=== PATIENT | male | born 1975 | race Two or more races ===

== ENCOUNTER 2020-01-20 09:29 | Emergency (ER) | payer OTHER ==
[~2020-01-20] VITALS: Ht 177.8 cm; Wt 140.6 kg
[2020-01-20] MEDS ORDERED: FORTAMET1000 MG (09:36)
[2020-01-20] MEDS ORDERED: JARDIANCE10 MG (09:36)
[2020-01-20] MEDS ORDERED: ATACAND16 MG (09:37)
== END 2020-01-20 17:29 | disposition home or self-care (01) ==
LOC: ER 09:29
DX: J22 Unspecified acute lower respiratory infection (principal); J98.11 Atelectasis; Z03.818 Encounter for observation for suspected exposure to other biological agents ruled out